=== PATIENT | female | born 1950 | race Caucasian/White ===

== ENCOUNTER 2022-05-07 21:19 | Emergency (ER) | payer MEDICARE, BC ==
[2022-05-07] MEDS ORDERED: Acetaminophen 500 MG TAB ONE (22:35)
[2022-05-07] MEDS ORDERED: Boostrix 0.5 ML (Tdap) VIAL (>/=7 yrs of age) ONE (22:56)
[2022-05-07] MEDS ORDERED: Lidocaine 1% w/Epinephrine 1:100K 20 ML VIAL ONE (22:56)
[2022-05-07] MEDS ORDERED: CEFAZOLIN 2 GM VIAL ONE (23:30)
[2022-05-07] MEDS ORDERED: Fentanyl 100 MCG/2 ML VIAL ONE (23:30)
[2022-05-08] MEDS ORDERED: Bacitracin 1 PK ONE (01:10)
== END 2022-05-08 01:42 | disposition home or self-care (01) ==
LOC: ERS 21:19
DX: S01.01XA Laceration without foreign body of scalp, initial encounter (principal); E11.9 Type 2 diabetes mellitus without complications; W10.9XXA Fall (on) (from) unspecified stairs and steps, initial encounter; Y93.01 Activity, walking, marching and hiking; Z23 Encounter for immunization
CPT/HCPCS: 12054; 70450; 72125; 90471; 90715; 96365; 96366; 96375; J3010

== ENCOUNTER 2022-10-25 21:21 | Inpatient (IN) | payer MEDICARE, BC ==
[2022-10-25 21:57] LABS: %Basophils 0.4 % (0.0-1.0); %Eosinophils 0.5 % (0.0-10.0); %Lymphocytes 9.7 % (21.0-51.0); Hemoglobin 11.8 g/dL (12.0-16.0); Mean Corpuscular HGB CONC 32.6 g/dL (32.0-36.0); Mean Corpuscular Hemoglobin 29.9 pg (27.0-31.0); Mean Corpuscular Volume 91.9 fl (78.0-98.0); Mean Platelet Volume 10.1 fL (7.4-10.4); Platelet Count 276 10x3/uL (130-400); Red Blood Cell (RBC) Count 3.94 mill/uL (4.20-5.40); White Blood Cell (WBC) Count 7.9 10x3/uL (4.8-10.8)
[2022-10-25] MEDS ORDERED: Dextrose 50% Abboject 50 ML SYRINGE ONE ×3 (21:58→22:06)
[2022-10-25 22:19] LABS: ALT (SGPT) 29 U/L (8-55); AST (SGOT) 37 U/L (5-34); Albumin 3.8 g/dL (3.4-4.8); Alkaline Phosphatase 69 U/L (40-110); Anion Gap 14 mmol/L (10-20); BUN (Urea Nitrogen) 41 mg/dL (9.8-20.1); Bilirubin, Total 0.4 mg/dL (0.2-1.2); Calc. Creatinine Clearance 0 mL/min (70-130); Calcium 9.5 mg/dL (7.8-10.44); Carbon Dioxide 25 mmol/L (23-31); Chloride 102 mmol/L (98-107); Estimated GFR 56; Globulin 2.6 g/dL (2.4-3.5); Potassium 3.9 mmol/L (3.5-5.1); Protein, Total 6.4 g/dL (5.8-8.1); Sodium 137 mmol/L (136-145)
[2022-10-25 22:36] LABS: Glucose 40 mg/dL (83-110)
[2022-10-26] MEDS ORDERED: Acetaminophen 325 MG TAB PO PRN (00:54)
[2022-10-26] MEDS ORDERED: Glucagon 1 MG/ML KIT IM PRN (00:54)
[2022-10-26] MEDS ORDERED: HumaLOG 300 UNITS/3 ML VIAL SC PRN (00:54)
[2022-10-26] MEDS ORDERED: Dextrose 5% in Water 1,000 ML IV PRN (00:54)
[2022-10-26] MEDS ORDERED: Acetaminophen 650 MG Suppository PR PRN (00:54)
[2022-10-26] MEDS ORDERED: Ondansetron ODT 4 MG TAB PO PRN (00:54)
[2022-10-26] MEDS ORDERED: Ondansetron PF 4 MG/2 ML Vial IVP PRN (00:54)
[2022-10-26] MEDS ORDERED: Dextrose 50% Abboject 50 ML SYRINGE SLOW IVP PRN (00:54)
[2022-10-26 01:42] VITALS: BMI 23.1
[2022-10-26 04:24] LABS: #Monocytes 0.4 thou/uL (0.11-0.59); #Neutrophils 4.6 thou/uL (1.40-6.50); %Basophils 0.3 % (0.0-1.0); %Eosinophils 0.7 % (0.0-10.0); %Lymphocytes 16.2 % (21.0-51.0); %Monocytes 6.2 % (0.0-10.0); %Neutrophils 76.3 % (42.0-75.0); Hemoglobin 10.5 g/dL (12.0-16.0); Mean Corpuscular HGB CONC 32.5 g/dL (32.0-36.0); Mean Corpuscular Hemoglobin 30.1 pg (27.0-31.0); Mean Corpuscular Volume 92.6 fl (78.0-98.0); Mean Platelet Volume 10.1 fL (7.4-10.4); Platelet Count 237 10x3/uL (130-400); RBC Distribution Width 14.1 % (11.5-14.5); Red Blood Cell (RBC) Count 3.49 mill/uL (4.20-5.40)
[2022-10-26 04:40] LABS: Hemoglobin A1c 9.7 % (4.0-6.0)
[2022-10-26 04:48] LABS: Bacteria/HPF 1+ HPF (None Seen); Bilirubin Negative (Negative); Blood, Urine Negative (Negative); Calcium Oxalate Crystals Rare HPF (None Seen); Clarity Clear (Clear); Glucose, Urine (Dipstick) 200 mg/dL (Negative); Ketone, Urine Trace mg/dL (Negative); Leukocyte 500 Leu/uL (Negative); Nitrite Negative (Negative); Protein, Urine (Dipstick) 20 mg/dL (Neg-Trace); RBC/HPF 0-3 HPF (0-3); Specific Gravity, Urine 1.014 (1.002-1.036); Squamous Epithelial None Seen HPF (0-3); Urobilinogen Normal mg/dL (Less than 2); WBC/HPF 21-50 HPF (0-3); pH, Urine 5.5 (5.0-9.0)
[2022-10-26 04:49] LABS: CK (CPK) 93 U/L (29-168); Magnesium 1.8 mg/dL (1.6-2.6)
[2022-10-26 04:57] LABS: Anion Gap 16 mmol/L (10-20); BUN (Urea Nitrogen) 36 mg/dL (9.8-20.1); Calc. Creatinine Clearance 62 mL/min (70-130); Calcium 8.7 mg/dL (7.8-10.44); Carbon Dioxide 22 mmol/L (23-31); Chloride 101 mmol/L (98-107); Estimated GFR 74; Glucose 271 mg/dL (83-110); Potassium 4.7 mmol/L (3.5-5.1); Sodium 134 mmol/L (136-145)
[2022-10-26] MEDS: HumaLOG 300 UNITS/3 ML VIAL SC PRN ×3 (06:20→18:30)
[2022-10-26] MEDS ORDERED: Insulin Glargine 30 UNITS/0.3 ML VIAL SC SCH (09:05)
[2022-10-26] MEDS: Gabapentin 300 MG CAP PO SCH (20:33)
[2022-10-26] MEDS: Insulin Glargine 30 UNITS/0.3 ML VIAL SC SCH (20:34)
[2022-10-26] MEDS: Trospium 20 MG TAB PO SCH (20:34)
[2022-10-26] MEDS ORDERED: Atorvastatin Calcium 40 MG TAB PO SCH (21:00)
[2022-10-27 07:50] LABS: #Eosinphils 0.1 thou/uL (0.0-0.7); #Monocytes 0.4 thou/uL (0.11-0.59); #Neutrophils 3.8 thou/uL (1.40-6.50); %Basophils 0.8 % (0.0-1.0); %Lymphocytes 15.8 % (21.0-51.0); %Monocytes 6.9 % (0.0-10.0); %Neutrophils 74.3 % (42.0-75.0); Mean Corpuscular HGB CONC 32.3 g/dL (32.0-36.0); Mean Corpuscular Hemoglobin 30.2 pg (27.0-31.0); Mean Corpuscular Volume 93.5 fl (78.0-98.0); Mean Platelet Volume 10.3 fL (7.4-10.4); Platelet Count 264 10x3/uL (130-400); RBC Distribution Width 13.9 % (11.5-14.5); Red Blood Cell (RBC) Count 3.97 mill/uL (4.20-5.40); White Blood Cell (WBC) Count 5.1 10x3/uL (4.8-10.8)
[2022-10-27 08:28] LABS: Anion Gap 12 mmol/L (10-20); BUN (Urea Nitrogen) 19 mg/dL (9.8-20.1); Calc. Creatinine Clearance 67 mL/min (70-130); Calcium 9.2 mg/dL (7.8-10.44); Carbon Dioxide 28 mmol/L (23-31); Chloride 103 mmol/L (98-107); Estimated GFR 84; Glucose 199 mg/dL (83-110); Potassium 4.2 mmol/L (3.5-5.1); Sodium 139 mmol/L (136-145)
[2022-10-27] MEDS ORDERED: Ramipril 5 MG CAP PO SCH (09:00)
[2022-10-27] MEDS ORDERED: Sertraline 100 MG TAB PO SCH (09:00)
[2022-10-27] MEDS ORDERED: Non-Formulary Item 1 EACH (Solifenacin Succinate [Solifenacin Succinate] 5 MG Tablet) PO SCH (09:00)
[2022-10-27] MEDS: Trospium 20 MG TAB PO SCH (10:04)
[2022-10-27] MEDS: Gabapentin 300 MG CAP PO SCH (10:05)
[2022-10-27] MEDS: Insulin Glargine 30 UNITS/0.3 ML VIAL SC SCH (11:00)
[2022-10-27] MEDS: HumaLOG 300 UNITS/3 ML VIAL SC PRN (11:42)
[2022-10-27 12:00] VITALS: TEMP 98.5
== END 2022-10-27 13:29 | disposition home or self-care (01) | DRG 640 ==
LOC: ERS 21:21 → IMCU/EMU 10-26 00:25
PROVIDERS: ADMIT Student in an Organized Health Care Education/Training Program; ATTEND Internal Medicine
DX: E16.2 Hypoglycemia, unspecified (principal); G93.41 Metabolic encephalopathy; E10.9 Type 1 diabetes mellitus without complications; C50.919 Malignant neoplasm of unspecified site of unspecified female breast; Z66 Do not resuscitate; I95.9 Hypotension, unspecified; C53.9 Malignant neoplasm of cervix uteri, unspecified; R56.9 Unspecified convulsions; T68.XXXA Hypothermia, initial encounter; F41.9 Anxiety disorder, unspecified; F32.A Depression, unspecified; I10 Essential (primary) hypertension; E78.5 Hyperlipidemia, unspecified; Z88.8 Allergy status to other drugs, medicaments and biological substances; Z79.4 Long term (current) use of insulin; Z79.899 Other long term (current) drug therapy; Z98.890 Other specified postprocedural states; Z98.891 History of uterine scar from previous surgery
CPT/HCPCS: 36415; 36416; 70450; 80048; 80053; 81001; 82533; 82550; 83036; 83735; 84146; 84443; 84484; 85025; 96374; J1815; J7999